=== PATIENT | female | born 1985 | race American Indian/Alaskan Native ===

== ENCOUNTER 2018-06-13 17:08 | Emergency (ER) | payer MEDICAID ==
[2018-06-13 17:16] VITALS: BP 125/57
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
[2018-06-13] MEDS ORDERED: DECADRON IM ONE (17:35)
[2018-06-13] MEDS ORDERED: HYDROCORTISONE CR TP ONE (18:00)
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
== END 2018-06-13 18:12 | disposition home or self-care (01) ==
LOC: ED 17:08
DX: L25.9 Unspecified contact dermatitis, unspecified cause (principal); F17.200 Nicotine dependence, unspecified, uncomplicated; Z88.4 Allergy status to anesthetic agent
CPT/HCPCS: 96372; 99282; J1100; A6250

== ENCOUNTER 2018-11-14 18:56 | Emergency (ER) | payer MEDICAID ==
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
[2018-11-14 21:56] VITALS: BP 106/67
== END 2018-11-14 21:59 | disposition home or self-care (01) ==
LOC: ED 18:56
DX: S40.861A Insect bite (nonvenomous) of right upper arm, initial encounter (principal); L03.113 Cellulitis of right upper limb; F17.200 Nicotine dependence, unspecified, uncomplicated; Z98.890 Other specified postprocedural states; Z79.899 Other long term (current) drug therapy; Z88.4 Allergy status to anesthetic agent; Z88.8 Allergy status to other drugs, medicaments and biological substances; W57.XXXA Bitten or stung by nonvenomous insect and other nonvenomous arthropods, initial encounter; Y93.89 Activity, other specified; Y92.89 Other specified places as the place of occurrence of the external cause; Y99.8 Other external cause status
CPT/HCPCS: 99282

== ENCOUNTER 2019-07-30 10:50 | Outpatient (CLI) | payer OTHER ==
--- NOTE | 2019-07-30 11:31 | XRay Report ---
CLINICAL DATA: BACK PAIN TECHNICAL DATA: AP and lateral views lumbar spine. FINDINGS: The bone mineralization is normal. Vertebral body heights are normal. Intervertebral disc spaces are well maintained. Pedicles and spinous processes are normal in alignment. SI joints and sacrum are nor mal. IMPRESSION: Normal examination lumbar spine. Signer Name: Tom Kirkland MD Signed: 07/30/2019 11:27 AM Workstation Name: [id number]
== END 2019-07-30 10:51 | disposition home or self-care (01) ==
LOC: XRAY 10:50
PROVIDERS: ATTEND Internal Medicine
DX: Z02.71 Encounter for disability determination (principal); M54.5 Low back pain
CPT/HCPCS: 72100

== ENCOUNTER 2020-04-30 09:02 | Emergency (ER) | payer SELFPAY ==
[2020-04-30] MEDS ORDERED: IBUPROFEN ORAL LIQD 100 MG/5 ML ORAL.LIQD ONE (09:36)
[2020-04-30] MEDS ORDERED: IBUPROFEN ORAL LIQD 100 MG/5 ML ORAL.LIQD PO ONE (09:43)
[2020-04-30] MEDS ORDERED: dexAMETHasone 20 MG/5 ML VIAL IM ONE (10:23)
[2020-04-30] MEDS ORDERED: PENICILLIN G BENZATHINE 1.2 MILLION UNIT/2 ML INJ IM ONE (10:23)
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
[2020-04-30 10:44] VITALS: BP 126/74
== END 2020-04-30 10:52 | disposition home or self-care (01) ==
LOC: ED 09:02
DX: J03.90 Acute tonsillitis, unspecified (principal); F17.200 Nicotine dependence, unspecified, uncomplicated; Z88.8 Allergy status to other drugs, medicaments and biological substances; Z79.899 Other long term (current) drug therapy; Z98.890 Other specified postprocedural states
CPT/HCPCS: 96372; 99282; J0561; J1100